=== PATIENT | female | born 1940 | race Caucasian/White ===

== ENCOUNTER 2017-01-03 09:53 | Inpatient (IN) | payer MEDICARE, OTHER ==
[~2017-01-03] VITALS: Ht 162.6 cm; Wt 66.5 kg
[2017-01-03] MEDS ORDERED: MONT10TA6 PO (10:32)
[2017-01-03] MEDS ORDERED: AMAN100C7 PO (10:32)
[2017-01-03] MEDS ORDERED: ESTR0.5T3 PO (10:32)
[2017-01-03] MEDS ORDERED: CLON-365 PO (10:32)
[2017-01-03] MEDS ORDERED: AMIN1CAP2 PO (10:32)
[2017-01-03] MEDS ORDERED: LOSA25TA2 PO (10:32)
[2017-01-03] MEDS ORDERED: LUBI8CAP4 PO (10:32)
[2017-01-03] MEDS ORDERED: [UNRECOGNIZED DRUG - OTHER] PO (10:32)
[2017-01-03] MEDS ORDERED: ESOM20CA PO (10:32)
[2017-01-03] MEDS ORDERED: astelin NAS (10:32)
[2017-01-03] MEDS ORDERED: CYAN25009 PO (10:57)
[2017-01-03] MEDS ORDERED: ASCO500C2 PO (10:57)
[2017-01-03] MEDS ORDERED: FLAX1CAP PO (10:57)
[2017-01-03] MEDS ORDERED: POLY17PO5 PO (10:57)
[2017-01-03] MEDS ORDERED: CHOL100011 PO (10:57)
[2017-01-03] MEDS ORDERED: SODI650T PO (10:57)
[2017-01-03] MEDS ORDERED: FLUT1DIS IH (10:57)
[2017-01-03] MEDS ORDERED: ALBU8.5H8 INH (10:57)
[2017-01-03] MEDS ORDERED: CALC1TAB PO (10:57)
[2017-01-03 11:19] LABS: HEMATOCRIT 42.5 % (34.6-47.8); HEMOGLOBIN 14.3 g/dL (11.7-16.4); WHITE BLOOD COUNT 6.6 x10^3/uL (3.4-10)
[2017-01-03 11:39] LABS: ASPARTATE AMINO TRANSFERASE 53 U/L (15-37); BLOOD UREA NITROGEN 62 mg/dL (7-18)
[2017-01-03 11:41] LABS: IS PT STATUS REG ER OR PRE ER? YES
[2017-01-03 11:57] LABS: PATH.CAST-FLAG NOT PRESENT; SPERM-FLAG NOT PRESENT; SRC-FLAG NOT PRESENT; XTAL-FLAG NOT PRESENT; YLC-FLAG NOT PRESENT
[2017-01-03] MEDS ORDERED: SODIUM CHLORIDE 0.9% 1,000 ML IV ONE (12:00)
[2017-01-03 15:30] VITALS: BP 175/83
[2017-01-03] MEDS ORDERED: ALBUTEROL SULFATE 2.5 MG/3 ML NPPB PRN (16:00)
[2017-01-03] MEDS ORDERED: ACETAMINOPHEN 325 MG TABLET PO PRN (16:00)
[2017-01-03 18:20] VITALS: BP 119/76
[2017-01-03] MEDS: SODIUM CHLORIDE 0.9% 1,000 ML IV SCH ×2 (18:24→23:37)
[2017-01-03] MEDS: OMEPRAZOLE 10 MG CAPSULE.DR PO SCH (18:27)
[2017-01-03 18:59] VITALS: BP 83/46
[2017-01-03 19:15] VITALS: BP 165/89
[2017-01-03] MEDS ORDERED: SODIUM CHLORIDE 0.9%, 500ML IVBOLUS ONE (19:30)
[2017-01-03] MEDS ORDERED: LOSARTAN 25MG TABLET PO SCH (21:00)
[2017-01-03 21:31] VITALS: BP 175/83
[2017-01-03] MEDS: CALCIUM/VITAMIN D3 250-125 TABLET PO SCH (21:42)
[2017-01-03] MEDS: LUBIPROSTONE 8 MCG CAPSULE PO SCH (21:43)
[2017-01-03] MEDS: SODIUM BICARBONATE 650 MG TABLET PO SCH (21:43)
[2017-01-03] MEDS: AMANTADINE 100 MG CAPSULE PO SCH (21:44)
[2017-01-03 23:37] VITALS: BP_SYST 121; BP_SYST 128; BP_SYST 146; BP_DIAS 77; BP_DIAS 82
[2017-01-04] VITALS (12 sets, daily range): BP systolic 112–184; BP diastolic 76–101
[2017-01-04] MEDS ORDERED: SODIUM CHLORIDE 0.9% 1,000ML IVBOLUS ONE (02:00)
[2017-01-04 02:22] LABS: HEMATOCRIT 37.4 % (34.6-47.8); HEMOGLOBIN 12.3 g/dL (11.7-16.4); WHITE BLOOD COUNT 5.9 x10^3/uL (3.4-10)
[2017-01-04 02:30] LABS: BLOOD UREA NITROGEN 51 mg/dL (7-18)
[2017-01-04 02:35] LABS: IS PT STATUS REG ER OR PRE ER? NO
[2017-01-04] MEDS: ESTRADIOL 0.5 MG TABLET PO SCH (08:42)
[2017-01-04] MEDS: SODIUM BICARBONATE 650 MG TABLET PO SCH ×2 (08:43→21:23)
[2017-01-04] MEDS: ASCORBIC ACID 500 MG TABLET PO SCH (08:43)
[2017-01-04] MEDS: OMEGA-3/FISH OIL CAPSULE PO SCH (08:44)
[2017-01-04] MEDS: CALCIUM/VITAMIN D3 250-125 TABLET PO SCH ×2 (08:44→21:24)
[2017-01-04] MEDS: MONTELUKAST 10 MG TABLET PO SCH (08:44)
[2017-01-04] MEDS: AMANTADINE 100 MG CAPSULE PO SCH ×2 (08:45→21:25)
[2017-01-04] MEDS: OMEPRAZOLE 10 MG CAPSULE.DR PO SCH ×2 (08:46→17:00)
[2017-01-04] MEDS: CHOLECALCIFEROL 1,000 UNIT TABLET PO SCH (08:47)
[2017-01-04] MEDS: POLYETHYLENE GLYCOL 17 GM PACKET PO SCH (08:47)
[2017-01-04] MEDS: LUBIPROSTONE 8 MCG CAPSULE PO SCH ×2 (08:47→21:25)
[2017-01-04] MEDS: CYANOCOBALAMIN 1,000 MCG TABLET PO SCH (08:47)
[2017-01-04] MEDS: SODIUM CHLORIDE 0.9% 1,000 ML IV SCH (15:00)
[2017-01-04] MEDS: hydrALAzine 20 MG/ML, 1ML IVPush PRN (17:59)
[2017-01-04] MEDS: LOSARTAN 25MG TABLET PO SCH (21:29)
[2017-01-05] VITALS (15 sets, daily range): BP systolic 116–173; BP diastolic 62–95
[2017-01-05] MEDS: POLYETHYLENE GLYCOL 17 GM PACKET PO SCH (08:19)
[2017-01-05] MEDS: MONTELUKAST 10 MG TABLET PO SCH (08:19)
[2017-01-05] MEDS: SODIUM BICARBONATE 650 MG TABLET PO SCH ×2 (08:20→20:59)
[2017-01-05] MEDS: CHOLECALCIFEROL 1,000 UNIT TABLET PO SCH (08:20)
[2017-01-05] MEDS: OMEPRAZOLE 10 MG CAPSULE.DR PO SCH ×2 (08:20→18:06)
[2017-01-05] MEDS: OMEGA-3/FISH OIL CAPSULE PO SCH (08:21)
[2017-01-05] MEDS: LOSARTAN 25MG TABLET PO SCH ×2 (08:22→20:58)
[2017-01-05] MEDS: ESTRADIOL 0.5 MG TABLET PO SCH (08:23)
[2017-01-05] MEDS: CALCIUM/VITAMIN D3 250-125 TABLET PO SCH ×2 (08:23→20:57)
[2017-01-05] MEDS: LUBIPROSTONE 8 MCG CAPSULE PO SCH ×2 (08:24→20:58)
[2017-01-05] MEDS: AMANTADINE 100 MG CAPSULE PO SCH ×2 (08:24→20:59)
[2017-01-05] MEDS: CYANOCOBALAMIN 1,000 MCG TABLET PO SCH (08:24)
[2017-01-05 10:39] LABS: BLOOD UREA NITROGEN 29 mg/dL (7-18)
[2017-01-05] MEDS ORDERED: POTASSIUM PHOSPHATE 44 MEQ in SODIUM CHLORIDE 0.9% 500 ML IV ONE (11:30)
[2017-01-05] MEDS ORDERED: MAGNESIUM SULFATE PMX 2GM/50ML 50 ML IV ONE (11:30)
[2017-01-05] MEDS: ASCORBIC ACID 500 MG TABLET PO SCH (18:05)
[2017-01-05] MEDS: SODIUM CHLORIDE 0.9% 1,000 ML IV SCH ×2 (21:04→23:27)
[2017-01-06] VITALS (8 sets, daily range): BP systolic 124–174; BP diastolic 70–89
[2017-01-06] MEDS: SODIUM CHLORIDE 0.9% 1,000 ML IV SCH (03:44)
[2017-01-06] MEDS: ESTRADIOL 0.5 MG TABLET PO SCH (09:00)
[2017-01-06] MEDS: OMEGA-3/FISH OIL CAPSULE PO SCH (09:00)
[2017-01-06] MEDS: SODIUM BICARBONATE 650 MG TABLET PO SCH (09:00)
[2017-01-06] MEDS ORDERED: TRAM50TA2 PO (09:39)
[2017-01-06] MEDS: CYANOCOBALAMIN 1,000 MCG TABLET PO SCH (09:49)
[2017-01-06] MEDS: LOSARTAN 25MG TABLET PO SCH (09:49)
[2017-01-06] MEDS: OMEPRAZOLE 10 MG CAPSULE.DR PO SCH (09:49)
[2017-01-06] MEDS: ASCORBIC ACID 500 MG TABLET PO SCH (09:49)
[2017-01-06] MEDS: CHOLECALCIFEROL 1,000 UNIT TABLET PO SCH (09:49)
[2017-01-06] MEDS: MONTELUKAST 10 MG TABLET PO SCH (09:49)
[2017-01-06] MEDS: CALCIUM/VITAMIN D3 250-125 TABLET PO SCH (09:49)
[2017-01-06] MEDS: AMANTADINE 100 MG CAPSULE PO SCH (09:51)
[2017-01-06] MEDS: POLYETHYLENE GLYCOL 17 GM PACKET PO SCH (10:04)
[2017-01-06] MEDS: LUBIPROSTONE 8 MCG CAPSULE PO SCH (11:26)
[2017-01-06] MEDS: hydrALAzine 20 MG/ML, 1ML IVPush PRN (11:42)
[2017-01-06] MEDS ORDERED: ASPI-515 PO (13:34)
== END 2017-01-06 15:30 | disposition home or self-care (01) | DRG 312 ==
LOC: ED 10:20 → EDIP 14:51 → SUATTDRO 15:12 → 5SO 15:49 → DCLOUNGE 01-06 15:10
PROVIDERS: ADMIT Internal Medicine; ATTEND Internal Medicine
PROC: 0T9B70Z Drainage of Bladder with Drainage Device, Via Natural or Artificial Opening (ICD-10-PCS; principal; 2017-01-03)
DX: I95.1 Orthostatic hypotension (principal); E87.2 Acidosis; N18.4 Chronic kidney disease, stage 4 (severe); I12.9 Hypertensive chronic kidney disease with stage 1 through stage 4 chronic kidney disease, or unspecified chronic kidney disease; Z88.6 Allergy status to analgesic agent; Z88.8 Allergy status to other drugs, medicaments and biological substances; D63.8 Anemia in other chronic diseases classified elsewhere; E78.5 Hyperlipidemia, unspecified; I73.00 Raynaud's syndrome without gangrene; J45.909 Unspecified asthma, uncomplicated; K21.9 Gastro-esophageal reflux disease without esophagitis; K58.9 Irritable bowel syndrome, unspecified; M81.0 Age-related osteoporosis without current pathological fracture; Z79.82 Long term (current) use of aspirin; Z79.899 Other long term (current) drug therapy; Z80.0 Family history of malignant neoplasm of digestive organs; Z80.1 Family history of malignant neoplasm of trachea, bronchus and lung; Z86.73 Personal history of transient ischemic attack (TIA), and cerebral infarction without residual deficits; Z90.49 Acquired absence of other specified parts of digestive tract; Z90.710 Acquired absence of both cervix and uterus; Z91.81 History of falling; F45.8 Other somatoform disorders; G90.8 Other disorders of autonomic nervous system
CPT/HCPCS: 36415; 70450; 71010; 80048; 80053; 81001; 82962; 83735; 83880; 84100; 84484; 85025; 85610; 85651; 85730; 93005; 93306; 93880; J0360; J3475; J7030; J7040